=== PATIENT | female | born 1960 | race Two or more races ===

== ENCOUNTER 2025-01-15 10:21 | Outpatient (CLI) | payer OTHER ==
[2025-01-15 11:06] LABS: CREATININE,URINE RANDOM 65.0 MG/DL; TOTAL PROTEIN,URINE RANDOM 14.5 MG/DL; UA PROTEIN/CREATININE RATIO 0.22 mg/mg Cr (0-0.16)
[2025-01-15 11:30] LABS: CHOL/HDL RATIO 6.0 (0.00-4.99); CREATININE 1.18 MG/DL (0.40-0.90); LDL CHOLESTEROL 173 MG/DL (50-100); TOTAL CARBON DIOXIDE 25.1 MMOL/L (24-32); eGFR 46 ML/MIN
[2025-01-16 13:12] LABS: THYROXINE (T4) 10.7 ug/dL (4.5-12.0)
== END 2025-01-15 23:59 | disposition home or self-care (01) ==
LOC: RAD 10:21
PROVIDERS: ATTEND Family Medicine
DX: E78.2 Mixed hyperlipidemia (principal); E11.649 Type 2 diabetes mellitus with hypoglycemia without coma; E03.9 Hypothyroidism, unspecified; E55.9 Vitamin D deficiency, unspecified
CPT/HCPCS: 36415; 80053; 80061; 82306; 82570; 84156; 84436; 84443